=== PATIENT | male | born 1940 | race Caucasian/White ===

== ENCOUNTER → 2020-01-27 | Outpatient (CLI) | payer OTHER ==
[~2020-01-27] MED LIST: ADULT LOW DOSE81 MG PO; ALEVE220 M1 PO; ALEVE220 MG PO; ASPIR 8181 MG PO; ASPIRIN325 PO; BISACODYL SUPP10 MG RECTAL; CELEBREX 200 M200 M1 PO; CINNAMON BARK1 GM PO; CINNAMON500 MG PO; CO Q-10100 MG PO; COLACE100 MG PO; CYMBALTA60 MG PO; DIABETA 5MG TABL5 MG PO; DILTIAZEM ER120 M1 PO; FISH OIL 1,001000 M2 PO; FLOMAX0.4 MG PO; FLONASE 0.05%50 MCG NASAL; GLUCOPHAGE1000 MG PO; GLUCOSAMINE CH1 EAC7 PO; GRALISE300 MG PO; HYDROCHLOROTHIA25 M2 PO; INVOKANA300 MG PO; LEVEMIR SUBQ; LINZESS290 MCG PO; LYRICA 50 MG50 MG PO; MIRALAX17 GM PO; MS CONTIN15 MG PO; MULTIVITAMINS PO; NEURONTIN 300300 M1 PO; NORCO 10-325 T1 EACH PO; NOVOLOG100 UNIT/1 SUBQ; OMEGA 3-6-9 CO1 EACH PO; OXYCONTIN20 MG PO; PACERONE 200 M200 M1 PO; PANTOPRAZOLE SO40 M1 PO; PERCOCET 5-3251 EACH PO; PERCOCET PO; PLAVIX 75 MG TA75 M1 PO; PRAVACHOL40 MG PO; PROAIR RESPICL90 MCG INH; PROTONIX40 M1 PO; QUINU10 PD PO; RANITIDINE 150150 M1 PO; REFRESH CLASSI1 EACH OP; SENNA LAXATIVE8.6 MG PO; SPIRIVA INH; SUPER B COMPLE150 MG PO; TAMSULOSIN HCL0.4 M1 PO; TRAMADOL 50 MG50 MG PO; [UNRECOGNIZED DRUG - OTHER] PO
== END ==
LOC: SJCVC 13:48
PROVIDERS: ATTEND Nuclear Medicine Nuclear Cardiology
DX: I73.9 Peripheral vascular disease, unspecified (principal); I25.10 Atherosclerotic heart disease of native coronary artery without angina pectoris; I11.9 Hypertensive heart disease without heart failure; I48.91 Unspecified atrial fibrillation; D69.3 Immune thrombocytopenic purpura; E78.00 Pure hypercholesterolemia, unspecified; E13.621 Other specified diabetes mellitus with foot ulcer; L97.509 Non-pressure chronic ulcer of other part of unspecified foot with unspecified severity; Z79.4 Long term (current) use of insulin; J44.9 Chronic obstructive pulmonary disease, unspecified

== ENCOUNTER → 2020-09-29 | Outpatient (CLI) | payer OTHER | LOC: SJCVCIMAG 12:32 | PROVIDERS: ATTEND Internal Medicine | DX: R94.31 Abnormal electrocardiogram [ECG] [EKG] (principal); R00.1 Bradycardia, unspecified; I70.203 Unspecified atherosclerosis of native arteries of extremities, bilateral legs; I65.23 Occlusion and stenosis of bilateral carotid arteries; I25.10 Atherosclerotic heart disease of native coronary artery without angina pectoris; I48.0 Paroxysmal atrial fibrillation; I10 Essential (primary) hypertension; E78.5 Hyperlipidemia, unspecified; J44.9 Chronic obstructive pulmonary disease, unspecified; E11.9 Type 2 diabetes mellitus without complications; K21.9 Gastro-esophageal reflux disease without esophagitis; E78.00 Pure hypercholesterolemia, unspecified; E11.621 Type 2 diabetes mellitus with foot ulcer; L97.509 Non-pressure chronic ulcer of other part of unspecified foot with unspecified severity; E11.51 Type 2 diabetes mellitus with diabetic peripheral angiopathy without gangrene; I77.9 Disorder of arteries and arterioles, unspecified; G47.33 Obstructive sleep apnea (adult) (pediatric); Z79.899 Other long term (current) drug therapy; Z79.4 Long term (current) use of insulin; Z88.6 Allergy status to analgesic agent ==

== ENCOUNTER → 2021-02-24 | Outpatient (CLI) | payer OTHER | LOC: SJCVC 09:35 | PROVIDERS: ATTEND Internal Medicine | DX: R94.31 Abnormal electrocardiogram [ECG] [EKG] (principal); R00.1 Bradycardia, unspecified; I48.0 Paroxysmal atrial fibrillation; I25.10 Atherosclerotic heart disease of native coronary artery without angina pectoris; I10 Essential (primary) hypertension; E78.5 Hyperlipidemia, unspecified; I65.23 Occlusion and stenosis of bilateral carotid arteries; J44.9 Chronic obstructive pulmonary disease, unspecified; E11.9 Type 2 diabetes mellitus without complications; Z79.4 Long term (current) use of insulin; G47.33 Obstructive sleep apnea (adult) (pediatric); Z90.49 Acquired absence of other specified parts of digestive tract; Z98.890 Other specified postprocedural states; Z98.61 Coronary angioplasty status; Z79.84 Long term (current) use of oral hypoglycemic drugs; Z79.899 Other long term (current) drug therapy; Z88.5 Allergy status to narcotic agent ==

== ENCOUNTER → 2021-04-21 | Outpatient (CLI) | payer OTHER | LOC: SJCVCIMAG 07:24 | PROVIDERS: ATTEND Internal Medicine | DX: I65.23 Occlusion and stenosis of bilateral carotid arteries (principal); I05.8 Other rheumatic mitral valve diseases; I11.9 Hypertensive heart disease without heart failure; I25.10 Atherosclerotic heart disease of native coronary artery without angina pectoris; I48.0 Paroxysmal atrial fibrillation; E78.5 Hyperlipidemia, unspecified; J44.9 Chronic obstructive pulmonary disease, unspecified; E11.9 Type 2 diabetes mellitus without complications; G47.33 Obstructive sleep apnea (adult) (pediatric); Z79.4 Long term (current) use of insulin; K21.9 Gastro-esophageal reflux disease without esophagitis; E78.00 Pure hypercholesterolemia, unspecified; Z90.49 Acquired absence of other specified parts of digestive tract; Z98.890 Other specified postprocedural states; Z88.8 Allergy status to other drugs, medicaments and biological substances; Z98.61 Coronary angioplasty status ==